=== PATIENT | female | born 1990 | race Caucasian/White ===

== ENCOUNTER 2017-02-14 12:18 | Emergency (ER) | payer SELFPAY | END 2017-02-14 13:27 | disposition home or self-care (01) | LOC: ERS 12:18 | DX: Z76.0 Encounter for issue of repeat prescription (principal); F41.9 Anxiety disorder, unspecified; F43.10 Post-traumatic stress disorder, unspecified; F32.9 Major depressive disorder, single episode, unspecified; F17.210 Nicotine dependence, cigarettes, uncomplicated | CPT/HCPCS: 99281 ==

== ENCOUNTER 2017-03-06 14:53 | Emergency (ER) | payer SELFPAY | END 2017-03-06 16:34 | disposition home or self-care (01) | LOC: ERS 14:53 | DX: F41.9 Anxiety disorder, unspecified (principal); F43.10 Post-traumatic stress disorder, unspecified; F32.9 Major depressive disorder, single episode, unspecified; F17.210 Nicotine dependence, cigarettes, uncomplicated | CPT/HCPCS: 99406 ==

== ENCOUNTER 2017-07-14 09:12 | Emergency (ER) | payer SELFPAY ==
--- NOTE | 2017-07-14 10:05 | RAD ---
RIGHT RIBS 2 VIEWS WITH PA CHEST: Date: 07/14/17 COMPARISON: Chest radiograph from 2014. FINDINGS: Lungs are clear. No pneumothorax or effusion. Cardiac silhouette and mediastinal contours within norm al limits. No mediastinum. No right-sided rib fracture. IMPRESSION: No acute abnormality. POS: KORI
== END 2017-07-14 10:18 | disposition home or self-care (01) ==
LOC: ERS 09:12
DX: S29.9XXA Unspecified injury of thorax, initial encounter (principal); F41.9 Anxiety disorder, unspecified; F32.9 Major depressive disorder, single episode, unspecified; F43.10 Post-traumatic stress disorder, unspecified; F17.210 Nicotine dependence, cigarettes, uncomplicated; Z79.899 Other long term (current) drug therapy; X58.XXXA Exposure to other specified factors, initial encounter

== ENCOUNTER 2018-06-26 16:29 | Emergency (ER) | payer SELFPAY ==
[2018-06-26] MEDS ORDERED: Dexamethasone 10 MG/ML VIAL ONE (16:47)
--- NOTE | 2018-06-26 17:17 | RAD ---
FRadiograph chest 2 views: HISTORY: 27-year-old female with cough FINDINGS: Lungs are clear. Cardiomediastinal silhouette is normal. No pleural effusion. IMPRESSION: Negative
== END 2018-06-26 17:25 | disposition home or self-care (01) ==
LOC: SCSER 16:29
DX: J20.9 Acute bronchitis, unspecified (principal); F41.9 Anxiety disorder, unspecified; F32.9 Major depressive disorder, single episode, unspecified; F17.210 Nicotine dependence, cigarettes, uncomplicated
CPT/HCPCS: 71046; 87081; 87430; 87804; J1100

== ENCOUNTER 2020-12-18 07:09 | Emergency (ER) | payer MEDICAID, SELFPAY ==
[2020-12-18 17:13] LABS: SARS-CoV-2 PCR by NAA Not Detected (NotDetected)
== END 2020-12-18 08:06 | disposition home or self-care (01) ==
LOC: ERS 07:09
DX: O99.512 Diseases of the respiratory system complicating pregnancy, second trimester (principal); J34.89 Other specified disorders of nose and nasal sinuses; O99.891 Other specified diseases and conditions complicating pregnancy; R51.9 Headache, unspecified; R05 Cough; O99.332 Smoking (tobacco) complicating pregnancy, second trimester; F17.210 Nicotine dependence, cigarettes, uncomplicated; Z20.822 Contact with and (suspected) exposure to COVID-19; Z3A.23 23 weeks gestation of pregnancy
CPT/HCPCS: 99283; U0003; U0005

== ENCOUNTER 2023-01-28 15:30 | Emergency (ER) | payer MEDICAID ==
[2023-01-28] MEDS ORDERED: Dexamethasone 10 MG/ML VIAL ONE (16:50)
[2023-01-28] MEDS ORDERED: Ibuprofen 200 MG TAB ONE (16:50)
[2023-01-28 17:15] LABS: SARS-CoV-2 NAA Rapid Test Not Detected (NotDetected)
== END 2023-01-28 17:40 | disposition home or self-care (01) ==
LOC: ERS 15:30
DX: J02.9 Acute pharyngitis, unspecified (principal); F17.210 Nicotine dependence, cigarettes, uncomplicated; Z20.822 Contact with and (suspected) exposure to COVID-19
CPT/HCPCS: 87081; 87430; 99283; J1100

== ENCOUNTER 2024-02-19 09:21 | Emergency (ER) | payer MEDICAID, SELFPAY ==
[2024-02-19 09:58] LABS: #Basophils 0.04 10x3/uL (0.0-0.2); %Basophils 0.7 % (0.0-1.0); %Eosinophils 3.7 % (0.0-10.0); %Lymphocytes 27.1 % (21.0-51.0); %Monocytes 7.9 % (0.0-10.0); %Neutrophils 60.4 % (42.0-75.0); Hematocrit 37.4 % (36.0-47.0); Hemoglobin 12.7 g/dL (12.0-16.0); Mean Corpuscular Hemoglobin 30.8 pg (27.0-31.0); Mean Corpuscular Volume 90.8 fL (78.0-98.0); Mean Platelet Volume 8.9 fL (7.4-10.4); Platelet Count 339 10x3/uL (130-400); RBC Distribution Width 13.7 % (11.5-14.5); Red Blood Cell (RBC) Count 4.12 mill/uL (4.20-5.40)
[2024-02-19 10:32] LABS: ALT (SGPT) 10 U/L (8-55); AST (SGOT) 16 U/L (5-34); Alkaline Phosphatase 32 U/L (40-110); Anion Gap 13 mmol/L (10-20); BUN (Urea Nitrogen) 9 mg/dL (7.0-18.7); Bilirubin, Total 0.5 mg/dL (0.2-1.2); Calc. Creatinine Clearance 0 mL/min (70-130); Carbon Dioxide 23 mmol/L (22-29); Chloride 106 mmol/L (98-107); Estimated GFR 121; Globulin 3.1 g/dL (2.4-3.5); Glucose 80 mg/dL (70-105); Potassium 4.2 mmol/L (3.5-5.1); Protein, Total 7.1 g/dL (6.0-8.3); Sodium 138 mmol/L (136-145)
[2024-02-19 11:17] LABS: Bacteria/HPF None Seen HPF (None Seen); Bilirubin Negative (Negative); Blood, Urine Negative (Negative); CAUTI Indications for Culture Acute Hematuria; Glucose, Urine (Dipstick) Normal (Negative); Ketone, Urine Negative (Negative); Leukocyte Negative Leu/uL (Negative); Nitrite Negative (Negative); Protein, Urine (Dipstick) Negative (Neg-Trace); RBC/HPF 0-3 HPF (0-3); Specific Gravity, Urine 1.012 (1.002-1.036); Squamous Epithelial None Seen HPF (0-3); Urobilinogen Normal mg/dL (Less than 2); WBC/HPF 0-3 HPF (0-3); pH, Urine 7.5 (5.0-9.0)
[2024-02-19 11:23] LABS: Clarity Turbid (Clear)
[2024-02-19 11:24] LABS: Urine Culture Reflex No No
== END 2024-02-19 12:41 | disposition home or self-care (01) ==
LOC: ERS 09:21
DX: O20.9 Hemorrhage in early pregnancy, unspecified (principal); Z3A.01 Less than 8 weeks gestation of pregnancy; F17.210 Nicotine dependence, cigarettes, uncomplicated
CPT/HCPCS: 36415; 76856; 80053; 81001; 84702; 85025; 86900; 86901; 93976

== ENCOUNTER 2024-10-20 16:52 | Emergency (ER) | payer OTHER, MEDICAID | END 2024-10-20 19:10 | disposition home or self-care (01) | LOC: ERS 16:52 | DX: L03.211 Cellulitis of face (principal); L03.119 Cellulitis of unspecified part of limb | CPT/HCPCS: 70486 ==